=== PATIENT | male | born 1990 | race African-American/Black ===

== ENCOUNTER 2019-03-30 12:32 | Emergency (ER) | payer MEDICAID ==
[~2019-03-30] VITALS: Ht 177.8 cm; Wt 93.0 kg
[2019-03-30] MEDS ORDERED: IBUPROFEN 800MG TABLET PO ONE (19:00)
[2019-03-30] MEDS ORDERED: DEXAMETHASONE 10 MG/ML VIAL IM ONE (19:00)
[2019-03-30] MEDS ORDERED: PENICILLIN G BENZATHINE 1,200,000 UNITS/2ML SYR IM ONE (19:00)
[2019-03-30 19:55] VITALS: BP 132/74
== END 2019-03-30 19:55 | disposition home or self-care (01) ==
LOC: ER 12:32
DX: J03.90 Acute tonsillitis, unspecified (principal); F12.10 Cannabis abuse, uncomplicated; F17.200 Nicotine dependence, unspecified, uncomplicated
CPT/HCPCS: 87070; 87430; 99283; J0561; J1100

== ENCOUNTER 2021-10-29 09:40 | Emergency (ER) | payer OTHER ==
[~2021-10-29] VITALS: Ht 177.8 cm; Wt 92.0 kg
[2021-10-29 09:44] VITALS: BP 116/77
== END 2021-10-29 10:27 | disposition home or self-care (01) ==
LOC: ER 09:40
DX: B34.9 Viral infection, unspecified (principal); F12.10 Cannabis abuse, uncomplicated; Z20.822 Contact with and (suspected) exposure to COVID-19
CPT/HCPCS: 87426; 99283